=== PATIENT | male | born 1955 | race Caucasian/White ===

== ENCOUNTER 2025-08-20 15:47 | Emergency (ER) | payer MEDICARE ==
[2025-08-20] MEDS: Diphtheria,Pertussis(Acell),Tetanus Vaccine 0.5 ML Syringe IM ONE (16:24)
[2025-08-20] MEDS: Amoxicillin/Clavulanate K 875-125 MG Tab PO ONE (17:01)
== END 2025-08-20 16:55 | disposition home or self-care (01) ==
LOC: JD.ED 15:47
DX: S61.012A Laceration without foreign body of left thumb without damage to nail, initial encounter (principal); Z23 Encounter for immunization; W23.0XXA Caught, crushed, jammed, or pinched between moving objects, initial encounter
CPT/HCPCS: 12001; 90471; 90715; 99282; A9270; J2003